=== PATIENT | female | born 1975 | race Caucasian/White ===

== ENCOUNTER → 2021-12-16 | Outpatient (CLI) | payer OTHER ==
[~2021-12-16] MED LIST: ENTRESTO 24 MG1 EAC2 PO; HYDR10 PO; LASIX20 M2 PO; METO50ER PO
[2021-12-16 15:56] LABS: Protein, Urine Quantitative 7.7 mg/dL (0.0-11.9)
== END | disposition home or self-care (01) ==
LOC: LAB SHORT 10:30
PROVIDERS: Internal Medicine Endocrinology, Diabetes & Metabolism
DX: D80.8 Other immunodeficiencies with predominantly antibody defects (principal)
CPT/HCPCS: 81050; 84156

== ENCOUNTER → 2022-01-04 | Outpatient (CLI) | payer OTHER | END | disposition home or self-care (01) | LOC: LAB SHORT 11:43 | PROVIDERS: Advanced Practice Midwife | DX: Z01.419 Encounter for gynecological examination (general) (routine) without abnormal findings (principal) | CPT/HCPCS: G0123 ==